=== PATIENT | female | born 1940 | race Caucasian/White ===

== ENCOUNTER 2016-12-24 11:27 | Observation (INO) | payer MEDICARE, OTHER ==
[2016-12-24] MEDS ORDERED: SILVER SULFADIAZINE 1% CREAM 25 GM TP ONE (12:02)
--- NOTE | 2016-12-24 12:09 | ER Document Report ---
ED General - General Chief Complaint: Fall Stated Complaint: SYNCOPE Time Seen by Provider: 12/24/16 12:01 Mode of Arrival: Ambulatory Information source: Patient Notes: This is a 76-year-old female with a history of hypertension, atrial fibrillation (on Xarelto), edema and morbid obesity. Patient awoke at 10 AM feeling good. Patient states she was getting coffee and was standing and suddenly had a syncopal episode. Patient states that she fell on her buttocks. She denies any pain to the head or any impact on her head. She denied any preceding chest pain, shortness of breath or palpitations. Patient did sustain cevallos to the right hand and right breast from the hot coffee. She states that she was not unconscious for very long at all. She denies any precipitating event. Currently, she denies any chest pain shot, shortness of breath. TRAVEL OUTSIDE OF THE [place] IN LAST 30 DAYS: No - HPI Onset: Just prior to arrival Onset/Duration: Sudden Quality of pain: Dull Severity: Moderate Pain Level: 2 Associated symptoms: denies: Chest pain, Fever, Shortness of breath Exacerbated by: Denies Relieved by: Denies Similar symptoms previously: No Recently seen / treated by doctor: No - Related Data Allergies/Adverse Reactions: codeine [Codeine] Allergy (Mild, Verified 07/11/12 12:08) Home Medications: Current Home Medications Lisinopril/Hydrochlorothiazide [Zestoretic 20-12.5 mg Tablet] 1 tab PO DAILY [History] Metoprolol Succinate [Toprol Xl 25 mg Tab.sr] 25 mg PO DAILY 12/24/16 [History] Rivaroxaban [Xarelto 15 mg Tablet] 15 mg PO QHS 12/24/16 [History] Timolol Maleate [Timoptic 0.5% Oph Soln 5 ml] 1 drop OU BID 12/24/16 [History] Past Medical History - General Information source: Patient - Social History Smoking Status: Never Smoker Cigarette use (# per day): No Chew tobacco use (# tins/day): No Frequency of alcohol use: None Drug Abuse: None Lives with: Family Family History: Reviewed & Not Pertinent Patient has suicidal ideation: No Patient has homicidal ideation: No - Past Medical History Cardiac Medical History: Reports: Hx Atrial Fibrillation, Hx Hypertension Musculoskeltal Medical History: Reports Hx Arthritis Past Surgical History: Reports: Hx Orthopedic Surgery - left knee replacement Review of Systems - Review of Systems Constitutional: No symptoms reported. denies: Chills, Fever EENT: No symptoms reported Cardiovascular: See HPI Respiratory: No symptoms reported Gastrointestinal: No symptoms reported Genitourinary: No symptoms reported Female Genitourinary: No symptoms reported Musculoskeletal: See HPI Skin: See HPI Hematologic/Lymphatic: No symptoms reported Neurological/Psychological: No symptoms reported Physical Exam - Vital signs Vitals: Resp Pulse Ox 12 100 12/24/16 11:42 12/24/16 11:42 Notes: Physical exam: GENERAL: 76-year-old female, alert and oriented 3, lying in stretcher and answering questions. HEAD: Atraumatic, normocephalic. EYES: Pupils equal round and reactive to light, extraocular movements intact, sclera anicteric, conjunctiva are normal. ENT: TMs normal, nares patent, oropharynx clear without exudates. Moist mucous membranes. NECK: Normal range of motion, supple without obvious mass or JVD. LUNGS: Breath sounds clear to auscultation bilaterally and equal. No wheezes rales or rhonchi. HEART: Regular rate and rhythm without murmurs, rubs or gallops. ABDOMEN: Soft, normoactive bowel sounds. No tenderness to palpation. No guarding, no rebound. No masses appreciated. EXTREMITIES: Normal range of motion, no pitting or edema. No clubbing or cyanosis. NEUROLOGICAL: Cranial nerves II through XII grossly intact. Normal speech, moving all extremities. PSYCH: Normal mood, normal affect. SKIN: Patient has superficial second-degree cevallos to the dorsal aspect of the right thumb and over the right metacarpal. These cevallos are noncircumferential and there is good cap refill. Patient has a second-degree superficial burn to the Top portion of her right breast with scattered. She has scattered areas of first-degree cevallos to the abdominal wall. Total burn percentage less than 2% Course - Vital Signs Vital signs: Temp Pulse Resp BP Pulse Ox 16 133/79 H 97 12/24/16 15:01 12/24/16 15:01 12/24/16 15:01 - Laboratory Result Diagrams: 12/24/16 11:50 12/24/16 11:50 Laboratory results interpreted by me: 12/24/16 12/24/16 11:50 13:40 BUN 40 H Creatinine 1.35 H Est GFR ( Amer) 46 L Est GFR (Non-Af Amer) 38 L Urine Blood MODERATE H - Diagnostic Test Radiology reviewed: Image reviewed, Reports reviewed - Chest x-ray shows borderline cardiomegaly, no acute infiltrates Discharge - Discharge Clinical Impression: Syncope, Cevallos to the right hand and breast Condition: Stable Disposition: ADMITTED OBSERVATION Admitting Provider: Hospitalist - Dr. Lacy Unit Admitted: Telemetry
[2016-12-24 12:10] LABS: ABSOLUTE EOSINOPHILS # (AUTO) 0.1 10^3/uL (0.0-0.6); ABSOLUTE LYMPHOCYTES (AUTO) 1.2 10^3/uL (0.5-4.7); ABSOLUTE MONOCYTES (AUTO) 0.4 10^3/uL (0.1-1.4); ABSOLUTE NEUT (AUTO) 2.8 10^3/uL (1.7-8.2); BASOPHILS % (AUTO) 0.7 % (0-2); EOSINOPHILS % (AUTO) 1.6 % (0-6); HEMATOCRIT 37.1 % (36.0-47.0); HEMOGLOBIN 12.5 g/dL (12.0-15.5); HGB HCT DIFFERENCE 0.4; MEAN CORPUSCULAR HEMOGLOBIN 31.6 pg (27.0-33.4); MEAN CORPUSCULAR HGB CONC 33.7 g/dL (32.0-36.0); MEAN CORPUSCULAR VOLUME 94 fl (80-97); MONOCYTES % (AUTO) 9.2 % (3-13); RED BLOOD COUNT 3.95 10^6/uL (3.72-5.28); RED CELL DISTRIBUTION WIDTH 13.5 % (11.5-14.0); SEGMENTED NEUTROPHILS % (AUTO) 62.5 % (42-78); WHITE BLOOD COUNT 4.5 10^3/uL (4.0-10.5)
[2016-12-24] MEDS ORDERED: METOPROLOL TARTRATE 50 MG TABLET PO ONE (12:25)
[2016-12-24] MEDS ORDERED: METOPROLOL TARTRATE PF/INJ 5 MG/5 ML SDV IV ONE (12:25)
[2016-12-24 12:29] LABS: ALANINE AMINOTRANSFERASE 23 U/L (9-52); ALKALINE PHOSPHATASE 72 U/L (38-126); ANION GAP 13 (5-19); ASPARTATE AMINO TRANSFERASE 24 U/L (14-36); BILIRUBIN,DIRECT 0.3 mg/dL (0.0-0.4); BILIRUBIN,TOTAL 0.6 mg/dL (0.2-1.3); BLOOD UREA NITROGEN 40 mg/dL (7-20); CALCIUM 9.5 mg/dL (8.4-10.2); CARBON DIOXIDE 25 mmol/L (22-30); CHLORIDE 107 mmol/L (98-107); CREATINE KINASE 45 U/L (30-135); CREATININE RESULT 1.35 mg/dL (0.52-1.25); GLUCOSE 103 mg/dL (75-110); POTASSIUM 4.4 mmol/L (3.6-5.0)
[2016-12-24 12:40] LABS: CREATINE KINASE MB 0.66 ng/mL (<4.55)
[2016-12-24 12:41] LABS: TROPONIN I < 0.012 ng/mL
[2016-12-24] MEDS: NORMAL SALINE 1000 ML 1,000 ML IV PRN (13:02)
[2016-12-24 14:04] LABS: APPEARANCE,URINE CLEAR; BILIRUBIN,URINE NEGATIVE (NEGATIVE); GLUCOSE, URINE NEGATIVE (NEGATIVE); KETONES,URINE NEGATIVE (NEGATIVE); LEUKOCYTE ESTERASE,URINE NEGATIVE (NEGATIVE); NITRITE,URINE NEGATIVE (NEGATIVE); PROTEIN,URINE NEGATIVE (NEGATIVE); URINE SPECIFIC GRAVITY 1.008; UROBILINOGEN,URINE NEGATIVE mg/dL (<2.0)
--- NOTE | 2016-12-24 14:26 | RADIOLOGY REPORT (SQ) ---
EXAM DESCRIPTION: CHEST SINGLE VIEW COMPLETED DATE/TIME: 12/24/2016 1:43 pm REASON FOR STUDY: syncope COMPARISON: None. EXAM PARAMETERS: NUMBER OF VIEWS: One view. TECHNIQUE: Single frontal radiographic view of the chest acquired. RADIATION DOSE: NA LIMITATIONS: None. FINDINGS: LUNGS AND PLEURA: No opacities, masses or pneumothorax. No pleural effusion. MEDIASTINUM AND HILAR STRUCTURES: No masses. Contour normal. HEART AND VASCULAR STRUCTURES: Cardiac silhouette is at the upper limits of normal in size. BONES: No acute findings. HARDWARE: None in the chest. OTHER: No other significant finding. IMPRESSION: Borderline cardiomegaly. No acute consolidations. Other findings as noted above TECHNICAL DOCUMENTATION: JOB ID: [id number]
[2016-12-24] MEDS ORDERED: DEXTROSE 40% GEL 15 GM TUBE PO PRN ×2 (14:48)
[2016-12-24] MEDS ORDERED: ACETAMINOPHEN 325 MG TABLET PO PRN (14:48)
[2016-12-24] MEDS ORDERED: DEXTROSE 50%-WATER 25 GM/50 ML DISP.SYRIN IV PRN ×2 (14:48)
[2016-12-24] MEDS ORDERED: GLUCAGON,HUMAN RECOMB 1 MG INJ SUBCUT PRN (14:48)
--- NOTE | 2016-12-24 15:44 | PDOC H&P ---
History of Present Illness Admission Date/PCP: 12/24/16 13:36 Patient complains of: passing out History of Present Illness: MEHDI BLOCK is a 76 year old white female with a past medical history significant for A. fib who presents to the medical service with complaints of passing out. Patient states she got up this morning and went to make her coffee. She started a pot of boiling water and then suddenly without warning she dropped and landed on her bottom. She states that she did not completely pass out but she was not completely aware either. She denies any dizziness, chest pain, shortness of breath, palpitations. She managed to make her way out to her front door and someone noticed and helped her call EMS. In the emergency room, the patient was noted to have a heart rate between 108 120. She was given an increased dose of her metoprolol which settled it down to the high 90s. Unfortunately the patient sustained superficial cevallos to her hand and to her right breast from when the hot water fell on her during her fall. The patient states that she has fallen in the past with the last bowel being in 2011. At that time the patient lost balance. There was no recollection of any sort of prodromal type symptoms. Patient says she feels weak in her legs. She has had a left knee replacement in the past. She denies any fevers chills nausea vomiting. She has glaucoma but thankfully has 20/20 vision with her glasses. In the emergency room the patient received IV fluids. Past Medical History Cardiac Medical History: Reports: Atrial Fibrillation, Hypertension EENT Medical History: Reports: Other - Glaucoma Musculoskeltal Medical History: Reports: Arthritis Past Surgical History Past Surgical History: Reports: Orthopedic Surgery - left knee replacement Social History Information Source: Patient Lives with: Alone Smoking Status: Former Smoker - The patient quit smoking 48 years ago. Frequency of Alcohol Use: Occasional - The patient drinks wine. Her last glass was yesterday for dinner. Drugs: None Past Social History Note: Patient currently lives alone. She is been for 30 years. She has 2 children 1 of whom is at a young age and the other who is 49 years old and living currently in [facility]. Both her children were adopted. - Advance Directive Resuscitation Status: Do Not Resuscitate Family History Family History: None Parental Family History Reviewed: Yes Children Family History Reviewed: Yes Sibling(s) Family History Reviewed.: Yes Medication/Allergy Home Medications: Lisinopril/Hydrochlorothiazide [Zestoretic 20-12.5 mg Tablet] 1 tab PO DAILY Metoprolol Succinate [Toprol Xl 25 mg Tab.sr] 25 mg PO DAILY 12/24/16 Rivaroxaban [Xarelto 15 mg Tablet] 15 mg PO QHS 12/24/16 Timolol Maleate [Timoptic 0.5% Oph Soln 5 ml] 1 drop OU BID 12/24/16 Allergies/Adverse Reactions: codeine [Codeine] Allergy (Mild, Verified 07/11/12 12:08) Review of Systems Review of Systems: Review of systems positive for that already listed in the HPI. Patient has had an intentional 2 pound weight loss over the last few weeks. She also is worried about her memory and feels that over the last couple of months her ability to find the words that she is searching for is decreased. She also has decreased balance he usually walks with a walker. She denies any fevers, nausea , vomiting, blood in the urine, blood in the stool, throwing up blood or coughing up blood, chest pain, shortness of breath, abdominal pain, diarrhea, constipation, heat intolerance, cough. She does however admit to cold intolerance. Physical Exam Vital Signs: Temp Pulse Resp BP Pulse Ox 10 L 149/60 H 99 12/24/16 12:01 12/24/16 12:01 12/24/16 12:01 GENERAL: This is a well-developed, well-nourished, elderly obese white female resting in bed currently in no acute distress. HEENT: Normocephalic, atraumatic. Trachea is midline. Dry mucous membranes. Pupils reactive. Sclera are anicteric. HEART: Regular rate and rhythm. No murmurs, rubs or gallops. LUNGS: Clear to auscultation bilaterally with equal rise and fall of the chest. ABDOMEN: Soft, nontender, nondistended with normoactive bowel sounds EXTREMETIES: No clubbing, cyanosis. w ith trace to 1+edema. 2+ peripheral pulses bilaterally. NEURO: Awake, alert and oriented 3. Cranial nerves II through XII are grossly intact. Strength is 5 out of 5 in both the upper and lower extremities bilaterally. Patient has tenderness of her shins. Skin: The patient has a superficial burn on her hand which is currently bandaged and her right breast. This is also currently covered with Silvadene and bandage Results Laboratory Results: 12/24/16 13:40 Urine Color STRAW Urine Appearance CLEAR Urine pH 5.0 Ur Specific [place] 1.008 Urine Protein NEGATIVE Urine Glucose (UA) NEGATIVE Urine Ketones NEGATIVE Urine Blood MODERATE H Urine Nitrite NEGATIVE Ur Leukocyte Esterase NEGATIVE Urine WBC (Auto) 0 Urine RBC (Auto) 2 Impressions: Chest X-Ray 12/24/16 13:00 IMPRESSION: Borderline cardiomegaly. No acute consolidations. Other findings as noted above Assessment & Plan - Diagnosis (1) Syncope and collapse Plan: The is unclear why the patient had a syncopal episode. Her renal function is actually not significantly depressed. She does have dry mucous membranes but has not had anything to eat or drink today. Will check a CT of the head. Patient is on Xarelto. We will also check an echo and carotid Dopplers. The patient will be admitted to observation on telemetry. She has a history of atrial fibrillation and of course her syncope could be attributable to this or sudden transient increase in her heart rate versus a transient Arrhythmia. (2) Atrial fibrillation with RVR Plan: Continue metoprolol at the higher dose. Continue Xarelto. (3) Glaucoma Plan: Continue timolol (4) Hypertension Plan: Continue lisinopril HCT. The patient has some underlying lower extremity edema. Will check a BNP. She may need some Lasix just to offer her more comfort. - Time Time Spent: 30 to 50 Minutes Anticipated discharge: Home - Inpatient Certification Medical Necessity: Need Close Monitoring Due to Risk of Patient Decompensation
--- NOTE | 2016-12-24 16:19 | EKG REPORT ---
SEVERITY:- ABNORMAL ECG - ATRIAL FIBRILLATION, V-RATE 86-140 PROBABLE POSTERIOR INFARCT NONSPECIFIC ST-T CHANGES- INFERIOR LEADS : Confirmed by: Ravinder Devries MD 24-Dec-2016 16:18:42
--- NOTE | 2016-12-24 19:08 | RADIOLOGY REPORT (SQ) ---
EXAM DESCRIPTION: CT HEAD WITHOUT COMPLETED DATE/TIME: 12/24/2016 5:37 pm REASON FOR STUDY: syncope and collapse R55 SYNCOPE AND COLLAPSE COMPARISON: None. TECHNIQUE: Axial images acquired through the brain without intravenous contrast. Images reviewed wi th bone, brain and subdural windows. Images stored on PACS. All CT scanners at this facility use dose modulation, iterative reconstruction, and/or weight based d osing when appropriate to reduce radiation dose to as low as reasonably achievable (ALARA). [facility]: Dose Right [facility]: CareDose [facility]: Dose Right [facility]: Teradose 4D [facility]: DailyDigital RADIATION DOSE: Up-to-date CT equipment and radiation dose reduction techniques were employed. CTDIv ol: 49.0 mGy. DLP: 881 mGy-cm. mGy. LIMITATIONS: None. FINDINGS: VENTRICLES: Normal size and contour. CEREBRUM: No masses. No hemorrhage. No midline shift. No evidence for acute infarction. Normal gra y/white matter differentiation. No areas of low density in the white matter. CEREBELLUM: No masses. No hemorrhage. No alteration of density. No evidence for acute infarction. EXTRAAXIAL SPACES: No fluid collections. No masses. ORBITS AND GLOBE: No intra- or extraconal masses. Normal contour of globe without masses. CALVARIUM: No fracture. PARANASAL SINUSES: No fluid or mucosal thickening. SOFT TISSUES: No mass or hematoma. OTHER: No other significant finding. IMPRESSION: NORMAL BRAIN CT WITHOUT CONTRAST. EVIDENCE OF ACUTE STROKE: NO. COMMENT: Quality ID # [id number]: Final reports with documentation of one or more dose reduction techniques (e.g., Automated exposure control, adjustment of the mA and/or kV according to patient size, use of iterative reconstruction technique) TECHNICAL DOCUMENTATION: JOB ID: [id number] [employer]- All Rights Reserved
[2016-12-24] MEDS ORDERED: TIMOLOL MALEATE 0.5% OPH SOLN 5 ML ONE (19:45)
[2016-12-24] MEDS ORDERED: RIVAROXABAN 15 MG TABLET PO SCH (22:00)
[2016-12-24] MEDS: TIMOLOL MALEATE 0.5% OPH SOLN 5 ML OU SCH (22:00)
[2016-12-25] MEDS: NORMAL SALINE 1000 ML 1,000 ML IV PRN (04:34)
[2016-12-25 07:24] LABS: HEMATOCRIT 32.1 % (36.0-47.0); HGB HCT DIFFERENCE 0.9; MEAN CORPUSCULAR HEMOGLOBIN 32.2 pg (27.0-33.4); MEAN CORPUSCULAR HGB CONC 34.4 g/dL (32.0-36.0); MEAN CORPUSCULAR VOLUME 94 fl (80-97); RED BLOOD COUNT 3.42 10^6/uL (3.72-5.28); WHITE BLOOD COUNT 3.6 10^3/uL (4.0-10.5)
[2016-12-25 07:45] LABS: ANION GAP 7 (5-19); BLOOD UREA NITROGEN 29 mg/dL (7-20); CARBON DIOXIDE 26 mmol/L (22-30); CHLORIDE 109 mmol/L (98-107); CREATININE RESULT 0.92 mg/dL (0.52-1.25); GLUCOSE 92 mg/dL (75-110); MAGNESIUM 2.1 mg/dL (1.6-2.3); POTASSIUM 4.2 mmol/L (3.6-5.0); SODIUM 142.4 mmol/L (137-145)
[2016-12-25] MEDS ORDERED: LISINOPRIL 10 MG TABLET PO SCH (10:00)
[2016-12-25] MEDS ORDERED: HYDROCHLOROTHIAZIDE 12.5 MG CAPSULE PO SCH (10:00)
[2016-12-25] MEDS ORDERED: (PENDING PHARMACY ID) (Lisinopril/Hydrochlorothiazide [Zestoretic 20-12.5 Mg Tablet] 1 TAB PO SCH (10:00)
[2016-12-25] MEDS: TIMOLOL MALEATE 0.5% OPH SOLN 5 ML OU SCH ×2 (10:16→17:13)
--- NOTE | 2016-12-25 10:34 | Physician Advisory Note ---
Physician Advisor ProgressNote .: Pursuant to the plan for Melecio Rosado, I have reviewed the medical record for this patient. Physician Advisor Statement: Please consider documentin. "Chronic Afib" or "Paroxysmal Afib" 2. "Acute Kidney Injury" / "ARF" - now resolved after IVF resuscitation 3. "morbid obesity, BMI 42.8" 4. Medical necessity - see below Status: 71yo Medicare pt, appropriate to come in as Obs for syncope/suspected arrhythmia with LIUDIMLA. Pt's beta-blockade has been increased, & IVF given, workup testing ordered. If pt not sufficiently stable for d/c on 12/25 w/close f/u, please document clinical reasons - "I AM CONCERNED ABOUT ____", "recurrent tachycardia/not hemodynamically stable", ... - and then could consider change to Inpt status. - Just awaiting tests that aren't done promptly, however, for example, would not be sufficient grounds for change to INpt. CK
--- NOTE | 2016-12-25 15:40 | RADIOLOGY REPORT (SQ) ---
EXAM DESCRIPTION: CAROTID DOPPLER COMPLETED DATE/TIME: 12/25/2016 3:07 pm REASON FOR STUDY: syncope R55 SYNCOPE AND COLLAPSE COMPARISON: CT brain 12/24/2016 TECHNIQUE: Grayscale ultrasound, Doppler velocity and spectra, and color Doppler images acquired of the extra-cranial carotid and vertebral arteries. Images stored on PACS. LIMITATIONS: None. FINDINGS: RIGHT CAROTID CCA Velocities: Within normal limits. ICA Velocities Peak systolic 0.59 m/s. End diastolic 0.19 m/s. Proximal ICA/CCA peak systolic ratio 1.2. Spectra normal. No significant plaque. LEFT CAROTID CCA Velocities: Within normal limits. ICA Velocities Peak systolic 0.48 m/s. End diastolic 0.24 m/s. Proximal ICA/CCA peak systolic ratio 1.6. Spectra normal. No significant plaque. VERTEBRAL ARTERIES: Antegrade flow. Normal waveforms. SUBCLAVIAN ARTERIES: Not evaluated OTHER: No other significant finding. IMPRESSION: NO HEMODYNAMICALLY SIGNIFICANT STENOSIS. COMMENT: Quality ID #[id number]: Velocity criteria are extrapolated from the diameter data as defined by t he Society of Radiologists in Ultrasound Consensus Conference. Radiology 2003: 229; 340-346. TECHNICAL DOCUMENTATION: JOB ID: [id number] [employer]- All Rights Reserved
--- NOTE | 2016-12-25 18:05 | PDOC DISCHARGE SUMMARY ---
General - Admit/Disc Date/PCP Admission Date/Primary Care Provider: 12/24/16 14:49 Discharge Date: 12/25/16 - Discharge Diagnosis (1) Syncope and collapse Summary: Resolved. Most likely secondary to RVR. The patient was also slightly dehydrated with very mild acute renal injury. This is since resolved. But could have accounted for the incidence of syncope. (2) Atrial fibrillation with RVR Summary: The patient's metoprolol was increased to 50 daily. This is likely a chronic atrial fibrillation. (3) Glaucoma Summary: Continue timolol drops at home. (4) Hypertension Summary: Continue lisinopril HCT the increased dose of metoprolol. (5) Morbid obesity Summary: Weight loss through dietary changes and exercise as tolerated. (6) Acute renal failure Summary: Resolved after IV fluids. - Additional Information Resuscitation Status: Do Not Resuscitate Home Medications: Lisinopril/Hydrochlorothiazide [Zestoretic 20-12.5 mg Tablet] 1 tab PO DAILY Rivaroxaban [Xarelto 15 mg Tablet] 15 mg PO QHS 12/24/16 Timolol Maleate [Timoptic 0.5% Oph Soln 5 ml] 1 drop OU BID 12/24/16 Metoprolol Succinate 50 mg PO DAILY #30 tab.er.24h 12/25/16 Silver Sulfadiazine [Silvadene 1% Cream 50 gm Tube] 1 applic TP BID #50 grams History of Present Illness History of Present Illness: MEHDI BLOCK is a 76 year old white female with a past medical history significant for A. fib who presents to the medical service with complaints of passing out. Patient states she got up this morning and went to make her coffee. She started a pot of boiling water and then suddenly without warning she dropped and landed on her bottom. She states that she did not completely pass out but she was not completely aware either. She denies any dizziness, chest pain, shortness of breath, palpitations. She managed to make her way out to her front door and someone noticed and helped her call EMS. In the emergency room, the patient was noted to have a heart rate between 108 120. She was given an increased dose of her metoprolol which settled it down to the high 90s. Unfortunately the patient sustained superficial cevallos to her hand and to her right breast from when the hot water fell on her during her fall. The patient states that she has fallen in the past with the last bowel being in 2011. At that time the patient lost balance. There was no recollection of any sort of prodromal type symptoms. Patient says she feels weak in her legs. She has had a left knee replacement in the past. She denies any fevers chills nausea vomiting. She has glaucoma but thankfully has 20/20 vision with her glasses. In the emergency room the patient received IV fluids. Hospital Course Hospital Course: Patient was admitted to the hospital for observation status. Carotid Dopplers and echocardiogram were ordered. Unfortunately echocardiogram was not resulted by the time she was discharged. However, carotid Dopplers were negative. She will follow-up with her outpatient automotive specialty technician for the echocardiogram results. The patient had no obvious signs or symptoms of stroke and certainly since she was admitted with RVR, her syncopal episode could have been due to an elevated heart rate. Follow-up with outpatient cardiology. Establish care with PCP. Patient is in the process of moving back to [place]. Physical Exam Vital Signs: Temp Pulse Resp BP Pulse Ox 98.5 F 79 19 134/77 H 97 12/25/16 15:20 12/25/16 15:20 12/25/16 15:20 12/25/16 15:20 12/25/16 15:20 Intake & Output 12/24/16 12/25/16 12/26/16 06:59 06:59 06:59 Intake Total 1905 690 Output Total 900 Balance 1905 -210 Weight 109.6 kg GENERAL: This is a well-developed, well-nourished, elderly obese white female resting in bed currently in no acute distress. HEART: Regular rate and rhythm. No murmurs, rubs or gallops. LUNGS: Clear to auscultation bilaterally with equal rise and fall of the chest. ABDOMEN: Soft, nontender, nondistended with normoactive bowel sounds EXTREMETIES: No clubbing, cyanosis. with trace edema. 2+ peripheral pulses bilaterally. NEURO: Awake, alert and oriented 3. Cranial nerves II through XII are grossly intact. Skin: The patient has a superficial burn on her hand which is erythematous. This is also erythema of the right breast from the scald Results Laboratory Results: 12/25/16 07:14 12/25/16 07:14 12/25/16 12/25/16 12/25/16 07:14 07:14 07:14 WBC 3.6 L RBC 3.42 L Hgb 11.0 L Hct 32.1 L MCV 94 MCH 32.2 MCHC 34.4 RDW 13.0 Plt Count 144 L Sodium 142.4 Potassium 4.2 Chloride 109 H Carbon Dioxide 26 Anion Gap 7 BUN 29 H Creatinine 0.92 Est GFR ( Amer) > 60 Est GFR (Non-Af Amer) 59 L Glucose 92 Calcium 9.0 Magnesium 2.1 TSH 3.56 Impressions: Head CT 12/24/16 00:00 IMPRESSION: NORMAL BRAIN CT WITHOUT CONTRAST. EVIDENCE OF ACUTE STROKE: NO. Chest X-Ray 12/24/16 13:00 IMPRESSION: Borderline cardiomegaly. No acute consolidations. Other findings as noted above Carotid Doppler Study 12/25/16 00:00 IMPRESSION: NO HEMODYNAMICALLY SIGNIFICANT STENOSIS. Qualifiers PATEINT BEING DISCHARGED WITH ANY OF THE FOLLOWING DIAGNOSIS?: No Plan Time Spent: Less than 30 Minutes
[2016-12-25 19:21] VITALS: BP 130/61
--- NOTE | 2016-12-25 19:38 | XCELERA REPORT ---
[address] [address] Transthoracic Echocardiogram Report Name: MEHDI BLOCK Age: 76 yrs Gender: Female : 1940 Patient Status: Inpatient Patient Location: [address] [place] [address] Study Date: 12/25/2016 01:57 PM Height: 63 in Weight: 247 lb BSA: 2.1 m2 Procedure: A complete two-dimensional transthoracic echocardiogram was performed (2D, M-mode, spectral and color flow Doppler). The study was technically difficult with many images being suboptimal in quality. Reason For Study: syncope Ordering Physician: WILLIAMS MARTE Performed By: Sunni Marley Interpretation Summary The study was technically difficult with many images being suboptimal in quality. The left ventricular ejection fraction is normal. There is mild concentric left ventricular hypertrophy. Wall motion cannot be accurately commented on, but no definite regional wall motion abnormalities noted. The left ventricle is grossly normal size. The right ventricular systolic function is normal. The left atrium is moderately dilated. The right atrium is normal in size There is a trace amount of mitral regurgitation There is no mitral valve stenosis. There is a trace to mild amount of aortic regurgitation There is no aortic valve stenosis There is a trace or physiologic amount of tricuspid regurgitation Tricuspid regurgitation jet envelope not well defined to measure RV systolic pressure accurately. The aortic root is not well visualized but is probably normal size. The inferior vena cava was not well visualized There is no pericardial effusion. MMode/2D Measurements & Calculations RVDd: 3.1 cm LVIDd: 4.8 cmFS: 31.3 % Ao root diam: 3.3 cm IVSd: 1.1 cm LVIDs: 3.3 cmEDV(Teich): 108.0 ml LVPWd: 1.1 cmESV(Teich): 44.2 ml Ao root area: 8.7 cm2 EF(Teich): 59.0 % LA dimension: 4.7 cm LVOT diam: 2.1 cm LVOT area: 3.6 cm2 Doppler Measurements & Calculations MV E max etta: MV P1/2t max etta: Ao V2 max: LV V1 max P.1 cm/sec 111.1 cm/sec 126.1 cm/sec 3.7 mmHg MV P1/2t: 51.0 msec Ao max PG: LV V1 max: MVA(P1/2t): 4.3 cm2 6.4 mmHg 96.7 cm/sec MV dec slope: CULLEN(V,D): 2.7 cm2 638.0 cm/sec2 PA V2 max: TR max etta: 73.5 cm/sec 255.8 cm/sec PA max P.2 mmHgTR max P.2 mmHg Left Ventricle The left ventricle is grossly normal size. There is mild concentric left ventricular hypertrophy. The left ventricular ejection fraction is normal. LV diastolic function could not be adequately assessed due to atrial fibrilation. Wall motion cannot be accurately commented on, but no definite regional wall motion abnormalities noted. Right Ventricle The right ventricle is grossly normal size. There is normal right ventricular wall thickness. The right ventricular systolic function is normal. Atria The right atrium is normal in size. The left atrium is moderately dilated. Interarterial septum not well visualized and not well dopplered. Cannot comment on ASD/PFO presence. Mitral Valve The mitral valve leaflets are sclerotic, but show no functional abnormalities. There is no mitral valve stenosis. There is a trace amount of mitral regurgitation. Aortic Valve The aortic valve is not well visualized secondary to technical limitations. There is no aortic valve stenosis. There is a trace to mild amount of aortic regurgitation. Tricuspid Valve The tricuspid valve is not well visualized secondary to technical limitations. There is no tricuspid stenosis. There is a trace or physiologic amount of tricuspid regurgitation. Tricuspid regurgitation jet envelope not well defined to measure RV systolic pressure accurately. Pulmonic Valve The pulmonic valve is not well visualized. Great Vessels The aortic root is not well visualized but is probably normal size. The inferior vena cava was not well visualized. Effusions There is no pericardial effusion. : WILLIAMS MARTE > Danica Sung
== END 2016-12-25 19:36 | disposition home or self-care (01) ==
LOC: ER 11:27 → UNDOADMOB 13:36 → INTOOBSV 13:36 → OBSVTOIN 13:36 → EH 13:36 → INTOOBSV 14:49 → OBSVTOIN 14:49 → EH 15:49 → 4N 15:49
DX: R55 Syncope and collapse (principal); E86.0 Dehydration; N17.9 Acute kidney failure, unspecified; I48.91 Unspecified atrial fibrillation; H40.9 Unspecified glaucoma; E66.01 Morbid (severe) obesity due to excess calories; R53.1 Weakness; R27.8 Other lack of coordination; R41.3 Other amnesia; R60.0 Localized edema; T23.291A Burn of second degree of multiple sites of right wrist and hand, initial encounter; T21.21XA Burn of second degree of chest wall, initial encounter; T21.12XA Burn of first degree of abdominal wall, initial encounter; T31.0 Burns involving less than 10% of body surface; X12.XXXA Contact with other hot fluids, initial encounter; Z96.652 Presence of left artificial knee joint; Z66 Do not resuscitate; Z79.899 Other long term (current) drug therapy; Z60.2 Problems related to living alone; Z87.891 Personal history of nicotine dependence; Z79.02 Long term (current) use of antithrombotics/antiplatelets; Z68.41 Body mass index [BMI] 40.0-44.9, adult
CPT/HCPCS: 93005; 99285; 96374; 36415 ×2; 82553; 82550; 83735 ×2; 84443; 85025; 85027; 80048; 80053; 81001; 84484; 93306; 93880; 71010; 70450; 93010; G0378 ×3; J3490 ×3; A9270 ×5; J7030 ×2

== ENCOUNTER 2017-01-15 10:35 | Emergency (ER) | payer MEDICARE, OTHER ==
--- NOTE | 2017-01-15 13:19 | RADIOLOGY REPORT (SQ) ---
EXAM DESCRIPTION: CT RT LOWER EXTREMITY WITHOUT COMPLETED DATE/TIME: 01/15/2017 11:43 am REASON FOR STUDY: right hip pain/rule out occult fx COMPARISON: None. TECHNIQUE: CT scan of the right hip performed without intravenous or oral contrast. Images reviewed with soft tissue and bone windows. Reconstructed coronal and sagittal MPR images reviewed. All con ges stored on PACS. All CT scanners at this facility use dose modulation, iterative reconstruction, and/or weight based d osing when appropriate to reduce radiation dose to as low as reasonably achievable (ALARA). [facility]: Dose Right [facility]: CareDose [facility]: Dose Right [facility]: Teradose 4D [facility]: [employer] RADIATION DOSE: Up-to-date CT equipment and radiation dose reduction techniques were employed. CTDIv ol: 42.5 mGy. DLP: 1863 mGy-cm. mGy. LIMITATIONS: None. FINDINGS: PELVIC BONES: No acute fracture. There is vacuum phenomenon and mild bony spurring at the right SI joint. VISUALIZED SPINE: Limited visualization. Advanced right-sided facet arthropathy at L3-4, L4-5, and L 5-S1. RIGHT HIP: No acute fracture or dislocation. No worrisome bone lesions. PELVIC SOFT TISSUES: No significant findings. Normal appendix. Enlarged fibroid uterus EXTRAPELVIC SOFT TISSUES: No significant findings. No iliopsoas or trochanteric bursa flow with. No right inguinal or femoral hernia OTHER: No other significant finding. IMPRESSION: NO ACUTE OR SIGNIFICANT FINDINGS IN THE RIGHT HIP OR PELVIS. TECHNICAL DOCUMENTATION: JOB ID: [id number] Quality ID # [id number]: Final reports with documentation of one or more dose reduction techniques (e.g., Au tomated exposure control, adjustment of the mA and/or kV according to patient size, use of iterative reconstruction technique) 2010 [employer]- All Rights Reserved
--- NOTE | 2017-01-15 13:43 | ER Document Report ---
ED General - General Chief Complaint: Hip Pain Stated Complaint: HIP AND GROIN PAIN Time Seen by Provider: 01/15/17 11:28 Mode of Arrival: Ambulatory Information source: Patient Notes: Patient reports right hip pain. She states it is been intermittent. It does radiate into her right leg. It is worse with movement and better with rest. She states the pain started after a fall. She states she was seen and admitted to the hospital after the fall. She states this was for workup of syncope but there is no evaluation of her right hip. She denies any numbness. She denies any other injuries. The pain is a sharp pain. TRAVEL OUTSIDE OF THE [place] IN LAST 30 DAYS: No - Related Data Allergies/Adverse Reactions: codeine [Codeine] Allergy (Mild, Verified 01/15/17 10:41) Past Medical History - General Information source: Patient - Social History Smoking Status: Never Smoker Chew tobacco use (# tins/day): No Frequency of alcohol use: None Drug Abuse: None Family History: Reviewed & Not Pertinent Patient has suicidal ideation: No - Past Medical History Cardiac Medical History: Reports: Hx Atrial Fibrillation, Hx Hypertension Denies: Hx Congestive Heart Failure, Hx Heart Attack Pulmonary Medical History: Reports: Hx Bronchitis, Hx Pneumonia Denies: Hx Asthma, Hx COPD, Hx Tuberculosis Neurological Medical History: Denies: Hx Seizures Renal/ Medical History: Denies: Hx End Stage Renal Disease, Hx Kidney Stones, Hx Peritoneal Dialysis GI Medical History: Denies: Hx Cirrhosis, Hx Gastroesophageal Reflux Disease, Hx Ulcer Musculoskeltal Medical History: Reports Hx Arthritis, Denies Hx Multiple Sclerosis Psychiatric Medical History: Denies: Hx Bipolar Disorder, Hx Depression, Hx Schizophrenia Past Surgical History: Reports: Hx Orthopedic Surgery - left knee replacement - Immunizations Hx Diphtheria, Pertussis, Tetanus Vaccination: Yes Review of Systems - Review of Systems Constitutional: denies: Chills, Fever Cardiovascular: denies: Chest pain, Palpitations Respiratory: denies: Cough, Short of breath -: Yes All other systems reviewed and negative Physical Exam - Vital signs Vitals: Resp 18 01/15/17 10:41 Interpretation: Normal - General General appearance: Appears well, Alert - HEENT Head: Normocephalic, Atraumatic Eyes: Normal Pupils: PERRL - Respiratory Respiratory status: No respiratory distress Chest status: Nontender Breath sounds: Normal Chest palpation: Normal - Cardiovascular Rhythm: Regular Heart sounds: Normal auscultation Murmur: No - Abdominal Inspection: Normal Distension: No distension Bowel sounds: Normal Tenderness: Nontender Organomegaly: No organomegaly - Back Back: Normal, Nontender - Extremities General upper extremity: Normal inspection, Nontender, Normal color, Normal ROM , Normal temperature General lower extremity: Edema - Right leg and hip are diffusely tender to palpation. She does have bilateral 2+ edema that is pitting. She has limited ability to bear weight secondary to pain., Normal temperature. No: Juan F's sign - Neurological Neuro grossly intact: Yes Cognition: Normal Orientation: AAOx4 Deena Coma Scale Eye Opening: Spontaneous Saxon Coma Scale Verbal: Oriented Deena Coma Scale Motor: Obeys Commands Deena Coma Scale Total: 15 Speech: Normal Motor strength normal: LUE, RUE, LLE, RLE Sensory: Normal - Psychological Associated symptoms: Normal affect, Normal mood - Skin Skin Temperature: Warm Skin Moisture: Dry Skin Color: Normal Course - Vital Signs Vital signs: Temp Pulse Resp BP Pulse Ox 98.4 F 91 18 125/88 H 97 01/15/17 10:42 01/15/17 10:42 01/15/17 10:41 01/15/17 10:42 01/15/17 10:42 - Diagnostic Test Radiology reviewed: Image reviewed, Reports reviewed - CT of the hip shows no evidence of fracture or dislocation Discharge - Discharge Clinical Impression: Contusion of right hip Condition: Stable Disposition: HOME, SELF-CARE Instructions: Contusion ([facility]) Additional Instructions: Please follow-up with your primary care physician as soon as possible
[2017-01-15 14:22] VITALS: BP 132/97
== END 2017-01-15 14:22 | disposition home or self-care (01) ==
LOC: ER 10:35
DX: S70.01XA Contusion of right hip, initial encounter (principal); M25.551 Pain in right hip; M79.604 Pain in right leg; R60.0 Localized edema; W19.XXXA Unspecified fall, initial encounter
CPT/HCPCS: 99284